=== PATIENT | male | born 1975 | race Caucasian/White ===

== ENCOUNTER 2018-12-02 14:41 | Emergency (ER) | payer OTHER ==
[~2018-12-02] VITALS: Ht 177.8 cm; Wt 76.7 kg
[2018-12-02 14:51] VITALS: Ht 177.8 cm; Wt 76.7 kg
[2018-12-02 16:38] VITALS: BP 142/71
[2018-12-02 17:06] LABS: microscopic required? NO
[2018-12-02 17:22] LABS: UA SPECIFIC GRAVITY <=1.005 (1.005-1.035); urine erythrocyte NEGATIVE (NEGATIVE)
== END 2018-12-02 16:57 | disposition left against medical advice (07) ==
LOC: ED 14:41
PROVIDERS: Emergency Medicine
DX: R10.13 Epigastric pain (principal); K74.60 Unspecified cirrhosis of liver; F17.210 Nicotine dependence, cigarettes, uncomplicated
CPT/HCPCS: 99406